=== PATIENT | female | born 1990 ===

== ENCOUNTER → 2018-01-11 | Outpatient (REF) ==
[~2018-01-11] MED LIST: CLIN60GE TP; TRET20CR37 TP
[2018-01-11 08:27] LABS: LDL CHOLESTEROL 65 mg/dl
== END ==
DX: Z02.9 Encounter for administrative examinations, unspecified (principal)

== ENCOUNTER → 2018-02-15 | Outpatient (CLI) | payer OTHER ==
[~2018-02-15] MED LIST changes: +FLUT16SP19 NS; +METR-160 PO; +Mirena IUD; +SULF-198 PO; +[UNRECOGNIZED DRUG - CODE] TOP
== END ==
LOC: LAB 08:15
PROVIDERS: ATTEND Emergency Medicine
DX: R30.0 Dysuria (principal); B96.20 Unspecified Escherichia coli [E. coli] as the cause of diseases classified elsewhere
CPT/HCPCS: 81001; 87077; 87088; 87186